=== PATIENT | female | born 1970 | race African-American/Black ===

== ENCOUNTER 2023-12-10 11:27 | Emergency (ER) | payer OTHER ==
[2023-12-10 11:53] VITALS: RESP 20; TEMP 99.6; BMI 29.0
[2023-12-10] MEDS ORDERED: ACETAMINOPHEN 500 MG TABLET (FP) ONE (12:39)
[2023-12-10] MEDS: ACETAMINOPHEN 500 MG TABLET (FP) PO ONE (12:41)
[2023-12-10 13:19] LABS: BASO % 0.3 % (0-2.0); EOS % 5.7 % (0-4.5); HEMATOCRIT 38.8 % (32.4-45.2); HEMOGLOBIN 12.7 GM/dL (10.7-15.3); LYMPH % 29.3 % (8-40); MCH 28.2 pg (25.7-33.7); MCHC 32.8 g/dl (32.0-36.0); MEAN CELL VOLUME 85.9 fl (80-96); MEAN PLT VOLUME 7.3 fl (7.5-11.1); MONO % 11.6 % (3.8-10.2); NEUT % 53.1 % (42.8-82.8); PLATELET COUNT 287 10^3/uL (134-434); RBC 4.51 M/mm3 (3.60-5.2); WHITE BLOOD COUNT 4.7 K/mm3 (4.0-10.0)
[2023-12-10 13:22] LABS: EPI CELLS 14 /uL (0-25.1); HYALINE CASTS 1 /uL (0-3.1); PH,URINE 5.5 (5.0-8.0); URINE APPEARANCE CLEAR; URINE BACTERIA 71 /uL (0-1359); URINE BILIRUBIN NEGATIVE (NEGATIVE); URINE COLOR YELLOW; URINE GLUCOSE (UA) NEGATIVE (NEGATIVE); URINE KETONE NEGATIVE (NEGATIVE); URINE LEUK ESTERASE NEGATIVE (NEGATIVE); URINE NITRITE NEGATIVE (NEGATIVE); URINE PROTEIN NEGATIVE (NEGATIVE); URINE RBC 18 /uL (0-23.9); URINE WBC 8 /uL (0-25.8)
[2023-12-10 13:32] LABS: POTASSIUM 3.8 mmol/L (3.5-5.1)
[2023-12-10 13:36] LABS: CALCIUM 8.8 mg/dL (8.5-10.1)
[2023-12-10 13:37] LABS: ALBUMIN 3.5 g/dl (3.4-5.0); BLOOD UREA NITROGEN 12.1 mg/dL (7-18)
[2023-12-10 13:40] LABS: CREATININE 1.2 mg/dL (0.55-1.3); INR 1.04 (0.83-1.09); PROTHROMBIN TIME (PATIENT) 11.9 SEC (9.7-13.0)
[2023-12-10 13:41] LABS: BILIRUBIN,TOTAL 0.3 mg/dL (0.2-1)
[2023-12-10 13:42] LABS: TOT PROT 6.9 g/dl (6.4-8.2)
[2023-12-10 16:30] VITALS: BP 152/67; PULSE 67
[2023-12-10] MEDS ORDERED: ONDANSETRON 4 MG/2 ML VIAL ONE (18:19)
[2023-12-10] MEDS ORDERED: FAMOTIDINE 20 MG/50 ML IVPB 20 MG/50 ML MG IVPB ONE (18:19)
[2023-12-10] MEDS: FAMOTIDINE 20 MG/50 ML IVPB 20 MG/50 ML MG IVPB ONE (18:27)
[2023-12-10] MEDS: ONDANSETRON 4 MG/2 ML VIAL IVPB ONE (18:27)
[2023-12-10] MEDS: SODIUM CHLORIDE 0.9% 500 ML INFUS.BAG IV ONE (18:27)
[2023-12-10 22:15] LABS: HCG,QUALITATIVE URINE Negative
== END 2023-12-10 19:11 | disposition home or self-care (01) ==
LOC: JER 11:27
PROC: 3E033GC Introduction of Other Therapeutic Substance into Peripheral Vein, Percutaneous Approach (ICD-10-PCS; principal; 2023-12-10)
PROC: 3E033GC Introduction of Other Therapeutic Substance into Peripheral Vein, Percutaneous Approach (ICD-10-PCS; 2023-12-10)
DX: R10.13 Epigastric pain (principal); N83.8 Other noninflammatory disorders of ovary, fallopian tube and broad ligament; R10.31 Right lower quadrant pain
CPT/HCPCS: 36415; 74177-TC; 76830-TC; 80053; 81003; 83605; 83690; 84484; 84703; 85025; 85610; 86850; 86900; 86901; 93005; 93010; 99285-25; Q9967